=== PATIENT | female | born 1990 | race Caucasian/White ===

== ENCOUNTER 2021-01-03 15:59 | Observation (INO) | payer MEDICAID, SELFPAY ==
[2021-01-03 16:00] VITALS: BP 102/55; PULSE 94; RESP 18; TEMP 36; O2SAT 100; BMI 22.0
--- NOTE | 2021-01-03 17:11 | EX.ED.SAOD ---
HPI History of Present Illness Chief Complaint: Substance Abuse Informant: patient Onset/Context/Timing Onset: Today Context: Gradual Onset Timing: Continuous Worsened by: Nothing Relieved by: Nothing Associated Symptoms Associated Symptoms: Positive for rash*; Negative for vomiting*, diarrhea*, fever*, seizure, tremor, palpatations, suicidal ideation and homicidal ideation Narrative Narrative: Patient presents requesting detox from opiates. Patient states she uses heroin and fentanyl. Patient states she injects and snorts. Patient states that her last use was approximately 2-1/2 hours prior to arrival. Patient states that she normally uses a gram to 1-1/2 g/day. Patient denies any nausea or vomiting. Patient denies any seizures or tremors. Patient denies any palpitations. Patient denies any fevers or chills. Patient denies any shortness of breath or cough. Patient denies any chest pain. Patient denies any suicidal homicidal ideations. [facility] Medical History Anxiety Depression Smoker Substance abuse Home Medications NK 01/03/21 [History Last Taken Unknown] Allergy/AdvReac Type Severity Reaction Status Date / Time No Known Allergies Allergy Verified 01/03/21 16:00 no surgical history Social History (Updated 01/03/21 @ 20:27 by rGiselda Ruiz NP-C) Smoking Status: Current every day smoker tobacco type: cigarettes alcohol intake: former substance use type: heroin and opiates ROS ROS ED Constitutional Constitutional ED: Denies chills or fever(s) Eyes Eyes: Denies blurry vision or change in vision ENT ENT ED: Denies rhinorrhea or sore throat Cardiovascular Cardiovascular: Denies chest pain or palpitations Respiratory/Chest Respiratory/Chest: Denies cough or dyspnea Gastrointestinal Gastrointestinal: Denies nausea or vomiting Genitourinary Genitourinary ED: Denies dysuria or hematuria Musculoskeletal Musculoskeletal: Reports back pain; Denies neck pain Integumentary Denies abscess or rash Neurologic Neurologic: Denies headache(s) or weakness Allergic/Immunologic Allergic/Immunologic ED: Denies mouth swelling or urticaria EXAM Physical Exam Const Vital Signs: 01/03/21 16:00 01/03/21 17:59 01/03/21 19:00 Temperature 96.8 F L Temperature Source Temporal Pulse Rate 94 69 69 Respiratory Rate 18 18 Blood Pressure 102/55 L 105/66 Blood Pressure Mean 70 79 Pulse Ox 100 97 Oxygen Delivery Method Room Air Room Air Positive well nourished, well developed and unkempt General Appearance ED: unkempt and well developed HEENT Reports moist mucous membranes Neck supple and no JVD Resp normal respiratory effort and clear to auscultation bilaterally Cardio regular rate, regular rhythm and no murmurs GI normal to inspection, nondistended, normoactive bowel sounds, soft to palpation and non-tender Palpation: soft Extremity normal to inspection General Extremety ED: Negative for edema or tenderness General Extremity: Negative for edema Neuro oriented x3, CN's II-XII intact bilaterally and no sensory deficits noted Sensorium / Orientation: alert Motor Exam: strength 5/5 throughout Psych mental status grossly normal Appearance: unkempt Speech: slow and soft Mood & Affect: depressed and flat affect Thought Content: No suicidality and No homicidality Skin no rashes or lesions noted MDM MDM MDM Narrative Medical decision making narrative: CBC shows a mild anemia with a hemoglobin of 10.8 hematocrit 31.9. Comprehensive metabolic profile was within normal limits. Urinalysis shows leukocyte esterase of 500 and positive nitrites. There are 25-50 white blood cells. There is 4+ bacteria. Urine toxin was positive for opiates, amphetamines, methamphetamine, cocaine, and cannabinoids. Serum hCG was negative. Serum alcohol level was negative. Case was discussed with the hospitalist. Patient will be admitted for detox. Patient understood and was agreeable with the plan. All questions were answered. Lab Data Attestation: I reviewed the patient's lab results. Labs: Laboratory Results - last 24 hr 01/03/21 01/03/21 01/03/21 17:20 17:20 18:15 WBC 7.2 RBC 3.71 L Hgb 10.8 L Hct 31.9 L MCV 86.0 MCH 29.1 MCHC 33.9 RDW Std Deviation 42.0 RDW Coeff of Raman 13.3 Plt Count 234 MPV 9.2 Immature Gran % (Auto) 0.400 Neut % (Auto) 64.4 Lymph % (Auto) 25.2 [place] % (Auto) 6.1 Eos % (Auto) 3.5 Baso % (Auto) 0.4 Absolute Neuts (auto) 4.6 Absolute Lymphs (auto) 1.81 Nucleated RBC % 0 Sodium Potassium Chloride Carbon Dioxide Anion Gap BUN Creatinine Estim Creat Clear Calc Est GFR (MDRD) Af Amer Est GFR (MDRD) Non-Af BUN/Creatinine Ratio Glucose Calcium Total Bilirubin AST ALT Alkaline Phosphatase Total Protein Albumin Globulin Albumin/Globulin Ratio Serum , Qual Urine Color Yellow Urine Clarity Cloudy Urine pH 6.5 Ur Specific [place] 1.015 Urine Protein 15 H Urine Glucose (UA) Normal Urine Ketones 5 H Urine Occult Blood 25 H Urine Nitrite Positive H Urine Bilirubin Negative Urine Urobilinogen Normal Ur Leukocyte Esterase 500 H Urine RBC 0 SEEN Urine WBC 25-50 SEEN Ur Squamous Epith Cells 0-5 SEEN Urine Bacteria 4+ Urine Mucus 0 SEEN Urine Opiates Screen POSITIVE H Urine Methadone Screen NEGATIVE Ur Barbiturates Screen NEGATIVE Ur Phencyclidine Scrn NEGATIVE Ur Amphetamines Screen POSITIVE H U Methamphetamin-MDMA POSITIVE H U Benzodiazepines Scrn NEGATIVE Urine Cocaine Screen POSITIVE H U Cannabinoids Screen POSITIVE H Ur Drug Screen Comment Ethyl Alcohol 01/03/21 01/03/21 01/03/21 18:15 18:15 18:15 WBC RBC Hgb Hct MCV MCH MCHC RDW Std Deviation RDW Coeff of Raman Plt Count MPV Immature Gran % (Auto) Neut % (Auto) Lymph % (Auto) [place] % (Auto) Eos % (Auto) Baso % (Auto) Absolute Neuts (auto) Absolute Lymphs (auto) Nucleated RBC % Sodium 139 Potassium 3.8 Chloride 104 Carbon Dioxide 32.0 Anion Gap 3 L BUN 14 Creatinine 0.73 Estim Creat Clear Calc 94.06 Est GFR (MDRD) Af Amer 121 Est GFR (MDRD) Non-Af 100 BUN/Creatinine Ratio 19.2 Glucose 85 Calcium 8.6 Total Bilirubin 0.40 AST 15 ALT 22 Alkaline Phosphatase 78 Total Protein 7.3 Albumin 3.3 Globulin 4.0 Albumin/Globulin Ratio 0.8 L Serum , Qual NEGATIVE Urine Color Urine Clarity Urine pH Ur Specific [place] Urine Protein Urine Glucose (UA) Urine Ketones Urine Occult Blood Urine Nitrite Urine Bilirubin Urine Urobilinogen Ur Leukocyte Esterase Urine RBC Urine WBC Ur Squamous Epith Cells Urine Bacteria Urine Mucus Urine Opiates Screen Urine Methadone Screen Ur Barbiturates Screen Ur Phencyclidine Scrn Ur Amphetamines Screen U Methamphetamin-MDMA U Benzodiazepines Scrn Urine Cocaine Screen U Cannabinoids Screen Ur Drug Screen Comment Ethyl Alcohol 5.0 Treatment and Re-Evaluation Vital Sign Attestation:: Vital signs were reviewed prior to admission. They are stable. Discharge Plan Dx/Rx/DC Orders Clinical Impression: Opioid abuse with intoxication, Desire for detoxification Disposition Disposition: Acute Care Hospital [facility] Discharge Date/Time: 01/03/21 20:34
[2021-01-03 17:40] LABS: Mucous, Urine 0 SEEN /hpf (<or=2+); Red Blood Cells-Urine 0 SEEN /hpf (0-5)
[2021-01-03 17:42] LABS: Color, Urine Yellow (Yellow); Glucose, Dipstick Normal (Normal); Ketone-Dipstick 5 mg/dl (Negative); Leukocyte Esterase-Dipstick 500 /ul (Negative); Nitrite-Dipstick Positive (Negative); Occult Blood-Urine 25 /ul (Negative); Protein-Dipstick 15 mg/dl (Negative); Specific Gravity, Urine 1.015 (1.002-1.030); Urine Bilirubin Dipstick Negative (Negative); Urine Clarity Cloudy (Clear); Urine Urobilinogen Normal (Normal); Urine pH 6.5 (5.0 - 8.0)
[2021-01-03 17:49] LABS: Bacteria 4+ /hpf (None Seen); Squamous Epithelial Cells - UA 0-5 SEEN /hpf (5-10); White Blood Cells 25-50 SEEN /hpf (0-5)
[2021-01-03 17:58] LABS: Amphetamine Urine VISTA POSITIVE (<1000 ng/mL); Barbiturate Urine VISTA NEGATIVE (< 200 ng/mL); Benzodiazepine Urine VISTA NEGATIVE (< 200 ng/mL); Cocaine Urine VISTA POSITIVE (< 300 ng/mL); Ecstacy Urine VISTA POSITIVE (< 500 ng/mL); Methadone Urine VISTA NEGATIVE (< 300 ng/mL); PCP Urine VISTA NEGATIVE (< 25 ng/mL); THC Urine VISTA POSITIVE (< 50 ng/mL); Vista UDS pH Range 6
[2021-01-03 17:59] VITALS: BP 105/66; PULSE 69; RESP 18; O2SAT 97
--- NOTE | 2021-01-03 18:01 | CM.ED ---
Addendum entered by Estee Oates 01/03/21 20:11: Patient reports 40- 1 1/2 gram a day. MACIEJ called Arun at [facility] and made referral to RAMP program. Arun will be up on Thursday to see patient. Estee FREY Original Note: MACIEJ note Reason for Referral: Ramp Referral Source: Case Find SW met with patient in her room. Also in the room was her friend, Erendira. Patient gave this va underwriter permission to speak in the presence of her friend. Patient had difficulty keeping her eyes open. She reports drugs of choice are opiates, specifically heroin and fentanyl. She said that she last used at 2:30pm today. Patient said that she is interested in [facility]. She was educated on the RAMP program rules and continued to voice interest in detox. MACIEJ to follow as needed. Plan: RAMP program Estee FREY
[2021-01-03 18:31] LABS: Internal QC Validated? YES +Cl - CLEAR BKGD; Pregnancy, Serum, hCG Quali. NEGATIVE Negative
[2021-01-03 18:34] LABS: Absolute Lymphocyte Count 1.81 X10^3/uL (0.83-4.51); Absolute Neutrophil Count 4.6 X10^3/uL (2.0-7.7); Basophil# 0.03 X10^3/uL; Basophil% 0.4 % (0-1); Eosinophil# 0.25 X10^3/uL; Eosinophils% 3.5 % (0-5); Hematocrit 31.9 % (37-47); Hemoglobin 10.8 g/dL (12.0-15.0); Lymphocyte # 1.81 X10^3/ul (0.83-4.51); Lymphocyte % 25.2 % (19-41); Mean Corp Hgb Conc 33.9 g/dL (32-36); Mean Corpuscular Hgb 29.1 pg (27.0-32.0); Mean Platelet Vol. 9.2 fl (6.2-12.0); Monocyte# 0.44 X10^3/uL; Monocyte% 6.1 % (0-10); NRBC Flagged by Analyzer 0 % (0-5); Neutrophil # 4.62 X10^3/uL (2.7-7.7); Neutrophil % 64.4 % (47-70); Platelet Count 234 K/mm3 (150-450); RBC Distribution Width CV 13.3 % (11.6-14.6); Red Blood Count 3.71 M/mm3 (4.2-5.4); White Blood Count 7.2 K/mm3 (4.4-11.0)
[2021-01-03 18:39] LABS: ALB/GLOB Ratio 0.8 RATIO (0.9-2.4); AST(SGOT) 15 U/L (15-37); Alanine Aminotransfer ALT/SGPT 22 U/L (13-56); Albumin, Serum 3.3 g/dL (3.2-5.0); Alkaline Phosphatase 78 U/L (45-117); Anion Gap 3 (5-15); BUN 14 mg/dL (7-18); BUN/Creat Ratio 19.2 RATIO (10-20); Calcium,Total 8.6 mg/dL (8.5-10.1); Chloride 104 mmol/L (98-107); Creatinine, Serum 0.73 mg/dL (0.55-1.02); EST Glomerular Filtration Rate 100 mL/min (>60); Est Glom Filt Rate - Afr Amer 121 mL/min (>60); Estimated Creatinine Clearance 94.06 ml/min; Glucose 85 mg/dL (74-106); Potassium 3.8 mmol/L (3.5-5.1); Protein, Total 7.3 g/dL (6.4-8.2); Sodium Level 139 mmol/L (136-145)
[2021-01-03 19:00] VITALS: PULSE 69
--- NOTE | 2021-01-03 20:20 | HP.PCM_ITS ---
Documented by User: DANIA Duong 01/03/21 20:34 HPI - General General Date of Admission: 01/03/21 Date of Service: 01/03/21 Chief Complaint: Desire for detoxification HPI Narrative JUAN RICO, is a 30 F who presents with desire to detox from opioids. Patient reports that she uses 1 g to 1-1/2 g of heroin and or fentanyl a day. Patient states that she snorts and injects depending on what she is able to obtain. Patient is in bed, lethargic but arousable. Patient denies other symptoms. [facility] Medical History Anxiety Depression Smoker Substance abuse Home Medications NK 01/03/21 [History Last Taken Unknown] Allergy/AdvReac Type Severity Reaction Status Date / Time No Known Allergies Allergy Verified 01/03/21 16:00 unable to obtain no surgical history Social History (Updated 01/03/21 @ 20:27 by DANIA Duong) Smoking Status: Current every day smoker tobacco type: cigarettes alcohol intake: former substance use type: heroin and opiates ROS Constitutional Constitutional: Reports lethargy; Denies anorexia, chills, fatigue, fever(s) or weakness Cardiovascular Cardiovascular: Denies chest pain, edema or palpitations Respiratory/Chest Respiratory/Chest: Denies cough, shortness of breath at rest or shortness of breath with exertion Gastrointestinal Gastrointestinal: Denies abdominal pain, constipation, diarrhea, nausea or vomiting Genitourinary Genitourinary: Denies dysuria Musculoskeletal Musculoskeletal: Denies back pain, extremity pain, joint pain or joint stiffness Integumentary Integumentary: Denies dry skin Neurologic Neurologic: Denies abnormal gait, abnormal speech, confusion or dizziness Psychiatric Psychiatric: Denies anxiety or depression Endocrine Endocrinology: Denies change in body appearance Hematologic/Lymphatic Hematologic/Lymphatic: Denies easy bleeding or easy bruising Vital Signs Vital Signs Vital Signs: 01/03/21 16:00 01/03/21 17:59 Temperature 96.8 F L Temperature Source Temporal Pulse Rate 94 69 Respiratory Rate 18 18 Blood Pressure 102/55 L 105/66 Blood Pressure Mean 70 79 Pulse Ox 100 97 Oxygen Delivery Method Room Air Room Air Weight Weight: 124 lb 5.451 oz Body Mass Index (BMI) 22.0 Physical Exam Const oriented x3 General Appearance: cooperative Orientation / Consciousness: lethargic HEENT normocephalic and head/scalp atraumatic Eyes conjunctivae normal and no scleral icterus Neck supple and no JVD General: trachea midline Resp normal respiratory effort, normal air movement and clear to auscultation bilaterally Cardio regular rate, regular rhythm, S1 normal heart sound and S2 normal heart sound GI normal to inspection, nondistended, normoactive bowel sounds, soft to palpation and non-tender Extremity normal capillary refill and no clubbing, cyanosis or edema General Extremity: no tenderness to palpation of joints or extremities Skin Skin Narrative: Multiple small scabbed areas to bilateral arms in various stages of healing General Skin Exam: no breakdown and turgor normal Lesions: no lesions Rashes: no rashes Neuro no focal motor deficits and no sensory deficits noted Speech: speech normal Motor Exam: Negative for general weakness Psych cooperative Speech: slurred Mood & Affect: flat affect Results Lab / Micro Data Result Diagrams: 01/03/21 18:15 01/03/21 18:15 Labs: Laboratory Results - last 24 hr 01/03/21 17:20: Urine Opiates Screen POSITIVE H, Urine Methadone Screen NEGATIVE, Ur Barbiturates Screen NEGATIVE, Ur Phencyclidine Scrn NEGATIVE, Ur Amphetamines Screen POSITIVE H, U Methamphetamin-MDMA POSITIVE H, U Benzodiazepines Scrn NEGATIVE, Urine Cocaine Screen POSITIVE H, U Cannabinoids Screen POSITIVE H, Ur Drug Screen Comment 01/03/21 17:20: Urine Color Yellow, Urine Clarity Cloudy, Urine pH 6.5, Ur Specific [place] 1.015, Urine Protein 15 H, Urine Glucose (UA) Normal, Urine Ketones 5 H, Urine Occult Blood 25 H, Urine Nitrite Positive H, Urine Bilirubin Negative, Urine Urobilinogen Normal, Ur Leukocyte Esterase 500 H, Urine RBC 0 SEEN, Urine WBC 25-50 SEEN, Ur Squamous Epith Cells 0-5 SEEN, Urine Bacteria 4+, Urine Mucus 0 SEEN 01/03/21 18:15: WBC 7.2, RBC 3.71 L, Hgb 10.8 L, Hct 31.9 L, MCV 86.0, MCH 29.1, MCHC 33.9, RDW Std Deviation 42.0, RDW Coeff of Raman 13.3, Plt Count 234, MPV 9.2, Immature Gran % (Auto) 0.400, Neut % (Auto) 64.4, Lymph % (Auto) 25.2, [place] % (Auto) 6.1, Eos % (Auto) 3.5, Baso % (Auto) 0.4, Absolute Neuts (auto) 4.6, Absolute Lymphs (auto) 1.81, Nucleated RBC % 0 01/03/21 18:15: Sodium 139, Potassium 3.8, Chloride 104, Carbon Dioxide 32.0, Anion Gap 3 L, BUN 14, Creatinine 0.73, Estim Creat Clear Calc 94.06, Est GFR (MDRD) Af Amer 121, Est GFR (MDRD) Non-Af 100, BUN/Creatinine Ratio 19.2, Glucose 85, Calcium 8.6, Total Bilirubin 0.40, AST 15, ALT 22, Alkaline Phosphatase 78, Total Protein 7.3, Albumin 3.3, Globulin 4.0, Albumin/Globulin Ratio 0.8 L 01/03/21 18:15: Ethyl Alcohol 5.0 01/03/21 18:15: Serum , Qual NEGATIVE Assessment & Plan Assessment/Plan (1) Desire for detoxification: (2) Opioid abuse with intoxication: (3) Tobacco use: PLAN: 1. Desire for detoxification from opioids -Admit to [facility] for part of ramp program -Buprenorphine taper ordered along with other supportive medications per protocol -CBC and BMP ordered daily -Vital signs per protocol -Oxygen per protocol 2. Positive urinalysis -Patient denies symptoms at this time states that he had symptoms approximately 3 weeks ago but they have subsided after approximately 5 to 6 days. -If upon repeat exam I would recommend treatment with antibiotics 3. Tobacco use -Inpatient smoking cessation ordered -Nicotine patch ordered DVT prophylaxis-no pharmacological prophylaxis indicated This patient was seen by Griselda Ruiz NP-C under the supervision of Dr. Barr. Documented by User: Dr. Bebeto Barr MD 01/03/21 21:00 HPI - General General Date of Admission: 01/03/21 [facility] Medical History Anxiety Depression Smoker Substance abuse Home Medications NK 01/03/21 [History Last Taken Unknown] Allergy/AdvReac Type Severity Reaction Status Date / Time No Known Allergies Allergy Verified 01/03/21 16:00 Social History (Updated 01/03/21 @ 20:27 by DANIA Duong) Smoking Status: Current every day smoker tobacco type: cigarettes alcohol intake: former substance use type: heroin and opiates Results Lab / Micro Data Result Diagrams: 01/03/21 18:15 01/03/21 18:15 Charges/Coding Addendum Addendum: Patient was seen and examined independently. I agree with assessment and plan by DANIA Duong In summary, patient is a 30-year-old female with a significant history of IV drug use who presents to emergency department for help with detoxification. Patient reports that her drug of choice is heroin and fentanyl. She uses about half to half a gram daily. Last time she used was about 1 hour prior to admission. Typically she snorts or shoots. Also she uses marijuana and cocaine. She report that she pretty much uses anything that she can lay hands on She denies any withdrawal symptoms. On examination patient was sleepy. She attributes her sleepiness to not sleeping a day before presentation. Physical exam: General: Well-nourished, well-developed. Head: Normocephalic, atraumatic, no tenderness Eyes: PERRLA, EOMI ENT, no trauma, moist mucous membranes, no rhinorrhea Neck: Nontender, full range of motion, no spinal tenderness, deformities, step-off CVS: Regular rate and rhythm Respiratory no acute distress, clear to auscultation bilaterally, chest wall nontender, no wheezing Abdomen: Soft, nontender, nondistended, normal bowel sounds, no masses : Deferred Back: Nontender, no CVA tenderness, no midline spinal tenderness, deformities, step-offs Extremities: Nontender full range of motion, no trauma Skin: Normal color, no trauma, abrasions Neuro: Lethargic, oriented x3, cranial nerves II through XII grossly intact. Psychiatry: Normal mood. Normal affect. Not depressed. Not anxious. Assessment and Plan The patient is a 30 year old F with a significant history of IV drug use; and tobacco abuse who presents emergency department with help with detoxification. Opioid dependence and desire for detoxification Review of labs showed mild anemia. Urine toxicology reviewed showed opiates; amphetamines; methamphetamine; cocaine and cannabinoids. Alcohol level was unremarkable. Patient will be started on Subutex and other adjunctive medications: Gabapentin as needed; dicyclomine as needed; Vistaril as needed; methocarbamol as needed; clonidine as needed; Imodium as needed; trazodone as needed and Zofran as needed. Monitor COWS and CINA score Tobacco abuse Counseled Nicotine patch prescribed. Abnormal urinalysis Review of emergent department labs showed abnormal urinalysis. Patient denies any current urinary symptoms. Clinical monitoring. DVT prophylaxis Low risk Encourage to ambulate Visit Charges Inpatient E&M: 25757 Init Hosp L2
[2021-01-03 20:26] VITALS: BP 109/79; PULSE 62; RESP 18; TEMP 36.8; O2SAT 99
[2021-01-03 20:42] VITALS: BMI 21.9
[2021-01-03 20:50] VITALS: BP 99/63; PULSE 79; RESP 16; TEMP 36.6; O2SAT 100
[2021-01-04 02:39] VITALS: BP 100/52; PULSE 70; RESP 16; TEMP 36.8; O2SAT 97
[2021-01-04 06:38] VITALS: BP 112/80; PULSE 80; RESP 16; TEMP 36.8; O2SAT 97
[2021-01-04 06:56] LABS: Absolute Lymphocyte Count 1.51 X10^3/uL (0.83-4.51); Absolute Neutrophil Count 5.8 X10^3/uL (2.0-7.7); Basophil# 0.03 X10^3/uL; Basophil% 0.4 % (0-1); Eosinophil# 0.27 X10^3/uL; Eosinophils% 3.3 % (0-5); Hematocrit 36.4 % (37-47); Hemoglobin 12.2 g/dL (12.0-15.0); Lymphocyte # 1.51 X10^3/ul (0.83-4.51); Lymphocyte % 18.6 % (19-41); Mean Corp Hgb Conc 33.5 g/dL (32-36); Mean Corpuscular Volume 86.5 fL (81-99); Mean Platelet Vol. 9.8 fl (6.2-12.0); Monocyte# 0.47 X10^3/uL; Monocyte% 5.8 % (0-10); NRBC Flagged by Analyzer 0 % (0-5); Neutrophil # 5.82 X10^3/uL (2.7-7.7); Neutrophil % 71.5 % (47-70); Platelet Count 247 K/mm3 (150-450); RBC Distribution Width CV 13.3 % (11.6-14.6); RBC Distribution Width SD 41.8 fl (35.1-43.9); Red Blood Count 4.21 M/mm3 (4.2-5.4); White Blood Count 8.1 K/mm3 (4.4-11.0)
[2021-01-04 07:03] VITALS: O2SAT 96
[2021-01-04 07:19] LABS: Anion Gap 6 (5-15); BUN 11 mg/dL (7-18); Calcium,Total 8.8 mg/dL (8.5-10.1); Chloride 105 mmol/L (98-107); Creatinine, Serum 0.69 mg/dL (0.55-1.02); EST Glomerular Filtration Rate 107 mL/min (>60); Est Glom Filt Rate - Afr Amer 130 mL/min (>60); Estimated Creatinine Clearance 99.52 ml/min; Glucose 82 mg/dL (74-106); Potassium 3.9 mmol/L (3.5-5.1); Sodium Level 137 mmol/L (136-145)
[2021-01-04] MEDS: Buprenorphine HCl 2 MG TAB.SUBL SL ×2 (08:57→17:26)
[2021-01-04 09:08] VITALS: BP 106/65; PULSE 84; RESP 16; TEMP 36.8; O2SAT 98
[2021-01-04] MEDS: Gabapentin 300 MG Capsule PO ×2 (10:15→19:38)
[2021-01-04] MEDS: hydrOXYzine PAM 25 MG Capsule 50 MG PO (10:15)
[2021-01-04] MEDS: Methocarbamol 750 MG Tablet 1500 MG PO ×2 (10:15→19:37)
--- NOTE | 2021-01-04 10:35 | ADDICTION ---
This television writer met with PT to conduct ASAM, MSE, AUDIT assessments and to plan for d/c. PT A+Ox4 and participated actively. All assessments completed, faxed to [facility] and placed in PT's chart. PT plans to f/u with [facility] for residential treatment and counseling services, if approved. PT did not indicate a need for transportation post d/c from [facility].
--- NOTE | 2021-01-04 11:30 | PCM.PN.HOSP ---
Documented by User: Christiano LEVI 01/04/21 11:39 Subjective Subjective Patient is a 30-year-old female comfortably resting in bed, alert and orient x3. Patient reports that her withdrawal symptoms are well managed and she has no complaints at this time. Denies chest pain, shortness of breath, palpitations, hemoptysis, sputum production, fever, chills, N/V/D. Objective Data Objective Data Vital Signs: Vital Signs Temp Pulse Resp BP Pulse Ox 98.3 F 84 16 106/65 98 01/04/21 09:08 01/04/21 09:08 01/04/21 09:08 01/04/21 09:08 01/04/21 09:08 Oxygen Delivery Method Room Air Weight: 123 lb 14.397 oz Body Mass Index (BMI) 21.9 Intake & Output: Intake and Output for Last 24 Hours 01/02/21 01/03/21 01/04/21 23:59 23:59 23:59 Intake Total 150 / 150 Balance 150 / 150 Lab / Micro Data Result Diagrams: 01/04/21 06:10 01/04/21 06:10 Labs: Laboratory Results - last 24 hr 01/03/21 17:20: Urine Opiates Screen POSITIVE H, Urine Methadone Screen NEGATIVE, Ur Barbiturates Screen NEGATIVE, Ur Phencyclidine Scrn NEGATIVE, Ur Amphetamines Screen POSITIVE H, U Methamphetamin-MDMA POSITIVE H, U Benzodiazepines Scrn NEGATIVE, Urine Cocaine Screen POSITIVE H, U Cannabinoids Screen POSITIVE H, Ur Drug Screen Comment 01/03/21 17:20: Urine Color Yellow, Urine Clarity Cloudy, Urine pH 6.5, Ur Specific [place] 1.015, Urine Protein 15 H, Urine Glucose (UA) Normal, Urine Ketones 5 H, Urine Occult Blood 25 H, Urine Nitrite Positive H, Urine Bilirubin Negative, Urine Urobilinogen Normal, Ur Leukocyte Esterase 500 H, Urine RBC 0 SEEN, Urine WBC 25-50 SEEN, Ur Squamous Epith Cells 0-5 SEEN, Urine Bacteria 4+, Urine Mucus 0 SEEN 01/03/21 18:15: WBC 7.2, RBC 3.71 L, Hgb 10.8 L, Hct 31.9 L, MCV 86.0, MCH 29.1, MCHC 33.9, RDW Std Deviation 42.0, RDW Coeff of Raman 13.3, Plt Count 234, MPV 9.2, Immature Gran % (Auto) 0.400, Neut % (Auto) 64.4, Lymph % (Auto) 25.2, [place] % (Auto) 6.1, Eos % (Auto) 3.5, Baso % (Auto) 0.4, Absolute Neuts (auto) 4.6, Absolute Lymphs (auto) 1.81, Nucleated RBC % 0 01/03/21 18:15: Sodium 139, Potassium 3.8, Chloride 104, Carbon Dioxide 32.0, Anion Gap 3 L, BUN 14, Creatinine 0.73, Estim Creat Clear Calc 94.06, Est GFR (MDRD) Af Amer 121, Est GFR (MDRD) Non-Af 100, BUN/Creatinine Ratio 19.2, Glucose 85, Calcium 8.6, Total Bilirubin 0.40, AST 15, ALT 22, Alkaline Phosphatase 78, Total Protein 7.3, Albumin 3.3, Globulin 4.0, Albumin/Globulin Ratio 0.8 L 01/03/21 18:15: Ethyl Alcohol 5.0 01/03/21 18:15: Serum , Qual NEGATIVE 01/04/21 06:10: WBC 8.1, RBC 4.21, Hgb 12.2, Hct 36.4 L, MCV 86.5, MCH 29.0, MCHC 33.5, RDW Std Deviation 41.8, RDW Coeff of Raman 13.3, Plt Count 247, MPV 9.8, Immature Gran % (Auto) 0.400, Neut % (Auto) 71.5 H, Lymph % (Auto) 18.6 L, [place] % (Auto) 5.8, Eos % (Auto) 3.3, Baso % (Auto) 0.4, Absolute Neuts (auto) 5.8, Absolute Lymphs (auto) 1.51, Nucleated RBC % 0 01/04/21 06:10: Sodium 137, Potassium 3.9, Chloride 105, Carbon Dioxide 26.0, Anion Gap 6, BUN 11, Creatinine 0.69, Estim Creat Clear Calc 99.52, Est GFR (MDRD) Af Amer 130, Est GFR (MDRD) Non-Af 107, BUN/Creatinine Ratio 16.0, Glucose 82, Calcium 8.8 Physical Exam Const alert, oriented x3 and no apparent distress HEENT head/scalp atraumatic and moist oral mucous membranes Head and Scalp: normocephalic Eyes EOMs intact bilaterally and conjunctivae normal Neck no lymphadenopathy, supple and no JVD Resp normal respiratory effort, no retractions, no use of accessory muscles and clear to auscultation bilaterally Cardio regular rate, regular rhythm, no murmurs and no JVD GI normal to inspection, nondistended, normoactive bowel sounds, soft to palpation and non-tender Extremity normal to inspection, full ROM and no clubbing, cyanosis or edema Skin no rashes or lesions noted, no wounds and skin turgor normal Neuro CN's II-XII intact bilaterally Psych affect normal Assessment & Plan Assessment/Plan (1) Desire for detoxification: (2) Opioid abuse with intoxication: (3) Tobacco use: PLAN: Day 2: See subjective. Discharge planning: Patient to follow up with [facility] behavioral services on discharge for outpatient therapy and RAMP program. 1) opioid abuse/withdrawal Patient is stable and withdrawal symptoms are controlled on current medication regimen. Discharge planning as above. Continue buprenorphine taper, gabapentin as needed, Bentyl as needed, Vistaril as needed, methocarbamol as needed, clonidine as needed, trazodone as needed, Zofran as needed, Imodium as needed, Tylenol as needed. 2) polysubstance abuse Urine tox screen on admission positive for opiates, amphetamines, methamphetamines, cocaine and cannabinoids. Plan; as above. 3) tobacco abuse Cessation encouraged, nicotine patch ordered. DVT prophylaxis - not indicated Patient seen by Christiano Dempsey PA-C, under the supervision of Dr. Davis. Documented by User: Dr. Sally Davis MD 01/04/21 13:03 Objective Data Lab / Micro Data Result Diagrams: 01/04/21 06:10 01/04/21 06:10 Charges/Coding Addendum Addendum: This patient was seen in conjunction with AMITA Sanchez. I have independently interviewed and examined the patient and reviewed pertinent historical, laboratory, and other data. Please refer to AMITA Sanchez's note for his patient's presentation, findings, and recommendations. I have reviewed and his note and concur with his documentation Patient was seen and examined. No new complaint. Discussed with poultry dressing worker, patient will be discharged to an inpatient rehab facility on Thursday morning Physical Exam: Gen: Appears comfortable, not pale, not jaundiced CVS:HS I +II, regular, no murmurs RESP: Diminished at lung bases GI: BS present and normal, soft, nontender, no palpable organs EXT:No edema ASSESSMENT: 1. Acute opioid withdrawal 2. Polysubstance use disorder 3. Nicotine abuse/dependence Plan: Continue on the buprenorphine withdrawal protocol Visit Charges Inpatient E&M: 71584 Subs Hosp L2
[2021-01-04] MEDS: cloNIDine HCl 0.1 MG Tablet PO ×2 (12:13→19:38)
[2021-01-04] MEDS: Dicyclomine 10 MG Capsule 20 MG PO (12:13)
--- NOTE | 2021-01-04 19:28 | PCS.PANDOC ---
PANDEMIC DOCUMENTATION INITIATED: Date: 12/31/2020 Time: 1900 Pandemic charting added during this time 1927
[2021-01-04 19:41] VITALS: BP 109/75; PULSE 85; RESP 16; TEMP 37.1; O2SAT 99
[2021-01-05] MEDS: traZODone 100 MG Tablet PO (00:33)
[2021-01-05] MEDS: Buprenorphine HCl 2 MG TAB.SUBL SL ×3 (00:34→16:43)
[2021-01-05 05:40] VITALS: BP 89/55; PULSE 88; RESP 16; TEMP 36.8; O2SAT 98
[2021-01-05 08:45] VITALS: BP 92/59; PULSE 90; RESP 16; TEMP 36.8; O2SAT 97
[2021-01-05 10:54] VITALS: O2SAT 94
--- NOTE | 2021-01-05 11:29 | PCM.PN.HOSP ---
Documented by User: Christiano LEVI 01/05/21 11:33 Subjective Subjective Patient is a 30-year-old female comfortably resting in bed, alert and orient x3. Patient reports that she has no concerns of her symptoms relative to withdrawal, symptoms are currently controlled on current medication regimen. Denies chest pain, shortness of breath, palpitations, hemoptysis, sputum production, fever, chills, N/V/D. Objective Data Objective Data Vital Signs: Vital Signs Temp Pulse Resp BP Pulse Ox 98.2 F 90 16 92/59 L 94 01/05/21 08:45 01/05/21 08:45 01/05/21 08:45 01/05/21 08:45 01/05/21 10:54 Oxygen Delivery Method Room Air Weight: 123 lb 14.397 oz Body Mass Index (BMI) 21.9 Intake & Output: Intake and Output for Last 24 Hours 01/03/21 01/04/21 01/05/21 23:59 23:59 23:59 Intake Total 750 / 750 Balance 750 / 750 Lab / Micro Data Result Diagrams: 01/04/21 06:10 01/04/21 06:10 Physical Exam Const alert, oriented x3 and no apparent distress HEENT head/scalp atraumatic and moist oral mucous membranes Head and Scalp: normocephalic Eyes EOMs intact bilaterally and conjunctivae normal Neck no lymphadenopathy, supple and no JVD Resp normal respiratory effort, no retractions, no use of accessory muscles and clear to auscultation bilaterally Cardio regular rate, regular rhythm, no murmurs and no JVD GI normal to inspection, nondistended, normoactive bowel sounds, soft to palpation and non-tender Extremity normal to inspection, full ROM and no clubbing, cyanosis or edema Skin no rashes or lesions noted, no wounds, skin turgor normal and no jaundice Neuro CN's II-XII intact bilaterally Psych affect normal Assessment & Plan Assessment/Plan (1) Desire for detoxification: (2) Opioid abuse with intoxication: PLAN: Day 3: See subjective. Discharge planning: Remain admitted until 01/07 for possible placement into inpatient drug rehab unit. 1) opioid abuse/withdrawal Patient is stable and withdrawal symptoms are controlled on current medication regimen. Discharge planning as above. Continue buprenorphine taper, gabapentin as needed, Bentyl as needed, Vistaril as needed, methocarbamol as needed, clonidine as needed, trazodone as needed, Zofran as needed, Imodium as needed, Tylenol as needed. 2) polysubstance abuse Urine tox screen on admission positive for opiates, amphetamines, methamphetamines, cocaine and cannabinoids. Plan; as above. 3) tobacco abuse Cessation encouraged, nicotine patch ordered. DVT prophylaxis - not indicated Patient seen by Christiano Dempsey PA-C, under the supervision of Dr. Davis. Documented by User: Dr. Sally Davis MD 01/05/21 12:34 Objective Data Lab / Micro Data Result Diagrams: 01/04/21 06:10 01/04/21 06:10 Charges/Coding Addendum Addendum: This patient was seen in conjunction with AMITA Sanchez. I have independently interviewed and examined the patient and reviewed pertinent historical, laboratory, and other data. Please refer to AMITA Sanchez's note for his patient's presentation, findings, and recommendations. I have reviewed and his note and concur with his documentation Patient was seen and examined. No new complaint. No acute events overnight. Physical Exam: Gen: Appears comfortable, not pale, not jaundiced CVS:HS I +II, regular, no murmurs RESP: Diminished at lung bases GI: BS present and normal, soft, nontender, no palpable organs EXT:No edema ASSESSMENT: 1. Acute opioid withdrawal 2. Polysubstance use disorder 3. Nicotine abuse/dependence Plan: Continue on the buprenorphine withdrawal protocol Visit Charges Inpatient E&M: 03940 Subs Hosp L2
[2021-01-05] MEDS: Gabapentin 300 MG Capsule PO (12:22)
[2021-01-05] MEDS: hydrOXYzine PAM 25 MG Capsule 50 MG PO ×2 (12:23→19:41)
[2021-01-05 15:11] VITALS: BP 97/67; PULSE 79; RESP 16; TEMP 36.8; O2SAT 100
[2021-01-05 19:34] VITALS: BP 101/65; PULSE 93; RESP 18; TEMP 36.4; O2SAT 98
[2021-01-06 01:23] VITALS: BP 108/72; PULSE 76; RESP 18; TEMP 36.7; O2SAT 99
[2021-01-06] MEDS: traZODone 100 MG Tablet PO (01:26)
[2021-01-06] MEDS: Buprenorphine HCl 2 MG TAB.SUBL SL ×2 (01:26→08:17)
[2021-01-06] MEDS: Nitrofurantoin Macrocrystals 100 MG Capsule PO ×2 (02:15→08:17)
[2021-01-06 08:34] VITALS: BP 93/67; PULSE 76; RESP 16; TEMP 36.4; O2SAT 100
--- NOTE | 2021-01-06 10:41 | PCM.PN.HOSP ---
Documented by User: Christiano LEVI 01/06/21 10:47 Subjective Subjective Patient is a patient is a 30-year-old female comfortably resting in bed, alert and orient x3. Patient denies any change or progression in symptoms from yesterday. Denies chest pain, shortness of breath, palpitations, hemoptysis, sputum production, fever, chills, N/V/D. Objective Data Objective Data Vital Signs: Vital Signs Temp Pulse Resp BP Pulse Ox 97.5 F L 76 16 93/67 100 01/06/21 08:34 01/06/21 08:34 01/06/21 08:34 01/06/21 08:34 01/06/21 08:34 Oxygen Delivery Method Room Air Weight: 123 lb 14.397 oz Body Mass Index (BMI) 21.9 Intake & Output: Intake and Output for Last 24 Hours 01/04/21 01/05/21 01/06/21 23:59 23:59 23:59 Intake Total 750 / 750 950 / 1450 500 / 500 Balance 750 / 750 950 / 1450 500 / 500 Lab / Micro Data Result Diagrams: 01/04/21 06:10 01/04/21 06:10 Physical Exam Const alert, oriented x3 and no apparent distress HEENT head/scalp atraumatic and moist oral mucous membranes Head and Scalp: normocephalic Eyes PERRL, EOMs intact bilaterally and conjunctivae normal Neck no lymphadenopathy, supple and no JVD Resp normal respiratory effort, no retractions, no use of accessory muscles and clear to auscultation bilaterally Cardio regular rate, regular rhythm, no murmurs and no JVD GI normal to inspection, nondistended, normoactive bowel sounds, soft to palpation and non-tender Extremity normal to inspection, full ROM and no clubbing, cyanosis or edema Skin no rashes or lesions noted, no wounds, skin turgor normal and no jaundice Neuro CN's II-XII intact bilaterally Psych affect normal Assessment & Plan Assessment/Plan (1) Desire for detoxification: (2) Opioid abuse with intoxication: (3) Tobacco use: PLAN: Day 4: See subjective. Discharge planning: Remain admitted until 01/07 for possible placement into inpatient drug rehab unit. 1) opioid abuse/withdrawal Patient is stable and withdrawal symptoms are controlled on current medication regimen. Discharge planning as above. Continue buprenorphine taper, gabapentin as needed, Bentyl as needed, Vistaril as needed, methocarbamol as needed, clonidine as needed, trazodone as needed, Zofran as needed, Imodium as needed, Tylenol as needed. 2) polysubstance abuse Urine tox screen on admission positive for opiates, amphetamines, methamphetamines, cocaine and cannabinoids. Plan; as above. 3) tobacco abuse Cessation encouraged, nicotine patch ordered. DVT prophylaxis - not indicated Patient seen by Christiano Dempsey PA-C, under the supervision of Dr. Davis. Documented by User: Dr. Sally Davis MD 01/06/21 11:30 Objective Data Lab / Micro Data Result Diagrams: 01/04/21 06:10 01/04/21 06:10 Charges/Coding Addendum Addendum: This patient was seen in conjunction with AMITA Sanchez. I have independently interviewed and examined the patient and reviewed pertinent historical, laboratory, and other data. Please refer to AMITA Sanchez's note for his patient's presentation, findings, and recommendations. I have reviewed and his note and concur with his documentation Patient was seen and examined. No new complaint. No acute events overnight. Discharge will be tomorrow to inpatient rehab Physical Exam: Gen: Appears comfortable, not pale, not jaundiced CVS:HS I +II, regular, no murmurs RESP: Diminished at lung bases GI: BS present and normal, soft, nontender, no palpable organs EXT:No edema ASSESSMENT: 1. Acute opioid withdrawal 2. Polysubstance use disorder 3. Nicotine abuse/dependence Plan: Continue on the buprenorphine withdrawal protocol Visit Charges Inpatient E&M: 70554 Subs Hosp L2
[2021-01-06 11:37] VITALS: O2SAT 95
[2021-01-06] MEDS: Gabapentin 300 MG Capsule PO (13:50)
[2021-01-06] MEDS: Methocarbamol 750 MG Tablet 1500 MG PO (13:50)
--- NOTE | 2021-01-06 14:14 | NURSING ---
door alarm to back stairs went off, and pt found outside of hospital. pt stopped and she stated she was leaving. ama papers signed and pt belongings given to her. security notified that pt in parking lot behind hospital. dr nguyen also made aware.
--- NOTE | 2021-01-06 15:41 | DS.PCM_ITS ---
Documented by User: Christiano LEVI 01/06/21 15:44 Providers Date of Admission: 01/03/21 Primary Care Physician: Glenna Primary Care Phys Reason For Visit: OPIOID DETOX Diagnosis Discharge Diagnosis (1) Desire for detoxification: Status: Acute (2) Opioid abuse with intoxication: Status: Acute Code(s): F11.129 - Opioid abuse with intoxication, unspecified (3) Tobacco use: Status: Acute Code(s): Z72.0 - Tobacco use Medications at Discharge Home Medications NK 01/03/21 Hospital Course Summary of Care Provided Minutes Spent on Discharge: 0 Hospital Course: Patient is a 30-year-old female who was being managed at [facility] for opioid abuse/withdrawal. Patient proceeded to leave AGAINST MEDICAL ADVICE and snuck out of the hospital without alerting any hospital staff. Patient was found sitting on the curb waiting for a ride, where she signed a AMA form and all her belongings were returned to her. Patient seen by Christiano Dempsey PA-C, under the supervision of Dr. Davis. Physical Exam Narrative Physical exam not completed as patient left AGAINST MEDICAL ADVICE. Please refer to progress note from 01/06. Weight / BMI Weight Weight: 123 lb 14.397 oz Body Mass Index (BMI) 21.9 ABG / Lab / Microbiology Data Result Diagrams: 01/04/21 06:10 01/04/21 06:10 Meaningful Use Info Meaningful Use Diagnoses (Choose all that apply): None applicable Discharge Plan Admission Admit Date/Time: 01/03/21 20:19 Attending Provider: Sally Davis Primary Care Provider: Care Physician,[place] Primary Discharge Orders/Prescriptions Prescriptions: No Action NK RF: 0 Referrals / Follow Up: Care Physician,No Primary [Primary Care Provider] - Disposition Disposition (needs filled in before D/C Order can be placed): Against Medical Advice Documented by User: Dr. Sally Davis MD 01/06/21 15:47 Providers Date of Admission: 01/03/21 Reason For Visit: OPIOID DETOX Medications at Discharge Home Medications NK 01/03/21 ABG / Lab / Microbiology Data Result Diagrams: 01/04/21 06:10 01/04/21 06:10 Discharge Plan Admission Admit Date/Time: 01/03/21 20:19 Attending Provider: Sally Davis Primary Care Provider: Care Physician,No Primary Discharge Orders/Prescriptions Prescriptions: No Action NK RF: 0 Referrals / Follow Up: Care Physician,No Primary [Primary Care Provider] - Disposition Disposition (needs filled in before D/C Order can be placed): Against Medical Advice Charges/Coding Addendum Addendum: This patient was seen in conjunction with AMITA Sanchez. I have independently interviewed and examined the patient and reviewed pertinent historical, laboratory, and other data. Please refer to AMITA Sanchez's note for his patient's presentation, findings, and recommendations. I have reviewed and his note and concur with his documentation 30-year-old female with past medical history of polysubstance use disorder admitted for medical stabilization from acute opioid withdrawal. [facility] buprenorphine withdrawal protocol. Physical Exam: Gen: Appears comfortable, not pale, not jaundiced CVS:HS I +II, regular, no murmurs RESP: Diminished at lung bases GI: BS present and normal, soft, nontender, no palpable organs EXT:No edema Visit Charges Inpatient E&M: 71929 Disch Hosp
== END 2021-01-06 14:05 | disposition left against medical advice (07) ==
LOC: ED 19:49 → MS3 01-04 08:22
PROVIDERS: Nurse Practitioner Family; Admitting Provider Internal Medicine; Emergency Provider Emergency Medicine; Visit Provider Internal Medicine
DX: F11.23 Opioid dependence with withdrawal (principal); F17.210 Nicotine dependence, cigarettes, uncomplicated; D64.9 Anemia, unspecified; F14.10 Cocaine abuse, uncomplicated; F12.10 Cannabis abuse, uncomplicated; F15.10 Other stimulant abuse, uncomplicated
CPT/HCPCS: 36415; 80048; 80053; 80307; 81001; 82077; 84703; 85025; 99218; 99283; 99406; H0012; G0378